=== PATIENT | female | born 1995 | race Caucasian/White ===

== ENCOUNTER 2020-03-20 21:45 | Emergency (ER) | payer OTHER ==
[~2020-03-20] VITALS: Ht 157.5 cm; Wt 96.6 kg
[~2020-03-20 21:45] MED LIST: DOXYCYCLINE 10100 MG PO; FLAGYL500 MG PO; NAPROSYN500 MG PO; NOHOMEMEDICATIONS
[2020-03-20 22:32] VITALS: BP 128/76
== END 2020-03-20 22:32 | disposition left against medical advice (07) ==
LOC: M.ERS 21:45
DX: Z53.21 Procedure and treatment not carried out due to patient leaving prior to being seen by health care provider (principal)